=== PATIENT | male | born 1980 | race Hispanic/Latino ===

== ENCOUNTER 2016-11-17 09:51 | Emergency (ER) | payer SELFPAY ==
[~2016-11-17] VITALS: Ht 188 cm; Wt 166.4 kg
[2016-11-17 09:58] VITALS: BP 169/110; PULSE 93; RESP 14; O2SAT 96
--- NOTE | 2016-11-17 10:05 | ED.REPORT ---
HPI-General Illness Date of Service Nov 17, 2016 ED Provider: Nathan Earl Pt is an obese 36 year old male with a history of HTN who presents to the ED after being referred by the for a possible new onset of DM. He c/o associated increased fluid intake, increased urinary frequency, fatigue, leg swelling, insomnia, and leg cramping. Pt also reports weight loss (200 lbs), but he has been exercising. He denies any other symptoms. The pt reports that he has not been diagnosed with DM, however he has a family history of DM. The pt has not been taking his HTN medications for the past 2 months because they make him cough. Nursing Notes Stated Complaint: POSSIBLE DIABETIC/SENT FROM Chief Complaint: General Complaint Nursing Notes Reviewed: Yes Allergies: Coded Allergies: No Known Allergies (Unverified , 11/17/16) Scheduled Losartan Potassium (Losartan Potassium) 25 Mg Tablet 25 MG PO DAILY Metformin (Metformin) 500 Mg Tablet 500 MG PO BID General Time Seen by MD: 10:04 Chief Complaint Other (Fatigue) Hx Obtained From: Patient Arrived By: Walk-in Sudden in Onset?: No Onset Occurred: Onset unknown Symptom Duration: Since onset Severity: Current: No pain currently Severity: Maximum: No pain Recent Healthcare: Recent doctor visit Similar Sx Previous: No Past Medical History Past Medical History Reports: Hypertension Past Surgical History Denies Family History Reports: Diabetes mellitus Smoking History Unknown if Ever Smoker Social History Alcohol Use: 1-3 per day Other Social History: Good social support Ambulatory Status Independent Review of Systems + Increased fluid intake Full Review of Systems Constitutional: Reports: Fatigue Male: Reports Urinary frequency Musculoskeletal: Reports: Extremity pain (Cramping), Extremity swelling Endocrine: Reports: Weight loss Skin: Reports Swelling Psychiatric: Reports: Insomnia (due to pain) Complete sys rev & neg: except as marked. Physical Exam Vital Signs Vital Signs Date Time Temp Pulse Resp B/P Pulse Ox O2 Delivery O2 Flow Rate FiO2 11/17/16 09:58 37.1 93 14 169/110 96 Room Air Initial VS: Reviewed Head / Eyes: Atraumatic, Normocephalic Neck: Supple, Full range of motion Respiratory: Breath sounds normal, Clear to auscultation, No respiratory distress Cardiovascular: Regular rate & rhythm, Heart sounds normal, Intact distal pulses Abdomen / GI: Soft, Non-tender Skin: Warm, Dry, No cyanosis Neurologic: Alert, Oriented, Nonfocal Psychiatric: Mood/affect normal, Behavior normal General/Constitutional: Awake, Alert, Cooperative Appearance / Presentation: Positive: Obese Lower Extremity / Pelvis / MS: Neurologic intact, Vascular intact Trace edema Interpretation & Diagnostics Lab Results Interpretation Result Diagram: 11/17/16 1007 11/17/16 1007 Test 11/17/16 10:07 White Blood Count 7.4th/mm3 (3.8-10.1) Red Blood Count 4.60mil/mm3 (4.40-5.80) Hemoglobin 14.0g/dL (13.8-17.2) Hematocrit 39.8% (41.0-50.0) Mean Corpuscular Volume 86.5fL (81-100) Mean Corpuscular Hemoglobin 30.4pg (27.0-35.0) Mean Corpuscular Hemoglobin Concent 35.2% (32.0-37.0) Red Cell Distribution Width 12.6% (12.3-15.4) Platelet Count 180bil/L (150-400) Neutrophils (%) (Auto) 62.7% (40-74) Lymphocytes (%) (Auto) 26.8% (14-46) Monocytes (%) (Auto) 6.2% (4-12) Eosinophils (%) (Auto) 3.0% (0-5) Basophils (%) (Auto) 0.8% (0-3) Sodium Level 134mEq/L (134-144) Potassium Level 3.9mEq/L (3.5-5.2) Chloride Level 93mEq/L (97-108) Carbon Dioxide Level 22mmol/L (18-29) Blood Urea Nitrogen 11mg/dL (6-20) Creatinine 0.73mg/dL (0.76-1.27) Estimat Glomerular Filtration Rate 128mL/min (>59) Glucose Level 400mg/dL (60-99) Calcium Level 9.6mg/dL (8.5-10.1) Total Bilirubin 0.5mg/dL (0.0-1.2) Aspartate Amino Transf (AST/SGOT) 89U/L (0-50) Alanine Aminotransferase (ALT/SGPT) 68U/L (0-44) Alkaline Phosphatase 133U/L (25-150) Total Protein 7.9g/dL (6.4-8.4) Albumin 4.4g/dL (3.4-5.0) Re-Eval/Medical Decision Source of Hx: Old records Time of Eval: 11:25 Patient Status: Condition improved Re-Evaluation/Progress Note: Pt rechecked. Informed pt of plan for discharge. Pt understands and agrees with plan for discharge. F/U instructions and RTER warnings given. All questions addressed. Counseled Regarding: Diagnosis, Lab results, Need for follow-up, When/why to return to ED Discharge & Departure Primary Impression: New onset type 2 diabetes mellitus Additional Impression: Severe uncontrolled hypertension Disposition: Home Discharge Condition All VS Reviewed: Yes Condition: Stable Patient Instructions: Hypertension (DC), Type 2 Diabetes in Adults (ED) Additional Instructions: You meet diagnostic criteria for new onset adult type II diabetes. I recommend the following treatment: Metformin (Glucophage) 500 mg morning and night. Acquire a glucometer, lancets and test strips and checked her blood sugar 2 or 3 times daily until your next doctor visit. Check first thing in the morning before you have eaten, before meals and an hour or 2 after meals. Record these values and the times that they were taken. For diet I recommend: Do not drink any calories. Lots of vegetables, a little bit of fruit, nuts and seeds and moderate amount of lean meats. Exercise: It sounds like your exercise program is quite good for now I do not recommend any specific adjustment. Regarding your blood pressure, I recommend that you acquire a blood pressure cuff and check your blood pressure 1-2 times a day and record the values. Be sure that you are seated and at rest for 5 minutes prior to checking. To treat your blood pressure I recommend losartan 25 mg daily. Call today to make an appointment for follow-up early next week. Referrals: Luis E Hull MD Attestation Portions of this note were transcribed by Rachael Bradford. I, Dr. Earl personally performed the history, physical exam and medical decision-making; I reviewed and confirmed the accuracy of the information in the transcribed note. Signed by: Alfonso Graves, 11/17/16 and 12:30. copies to: Lui sE Hull MD, Kirk H MD Nov 17, 2016 10:05 Rachael Dubois Nov 17, 2016 10:19
[2016-11-17 10:18] LABS: BASOPHILS % (AUTO) 0.8 % (0-3); MONOCYTES % (AUTO) 6.2 % (4-12); Mean Corpuscular Hemoglobin 30.4 pg (27.0-35.0); Mean Corpuscular Volume 86.5 fL (81-100); NEUTROPHILS % (AUTO) 62.7 % (40-74); Platelet Count 180 bil/L (150-400)
[2016-11-17] MEDS ORDERED: LOSA25TA21 PO (11:47)
[2016-11-17] MEDS ORDERED: METF500T4 PO (11:47)
[2016-11-17 11:59] VITALS: BP 178/103; PULSE 88; RESP 20; O2SAT 98
== END 2016-11-17 12:00 | disposition home or self-care (01) ==
LOC: SED 09:51
DX: E11.9 Type 2 diabetes mellitus without complications (principal); I10 Essential (primary) hypertension; Z79.84 Long term (current) use of oral hypoglycemic drugs